=== PATIENT | female | born 1980 | race Caucasian/White ===

== ENCOUNTER → 2017-10-18 | Outpatient (CLI) | payer OTHER ==
--- NOTE | 2017-10-18 17:05 | MR ---
EXAMINATION TYPE: MR brain wo/w con DATE OF EXAM: 10/18/2017 COMPARISON: NONE HISTORY: 37-year-old female migraine, unspecified, not intractable. Headaches, Dizzy. TECHNIQUE: Multiplanar, multisequence images of the brain and brainstem were acquired before and aft er administration of 10 mL IV Gadavist. Diffusion weighted imaging is performed. FINDINGS: No evidence for acute infarction, hemorrhage, mass, mass effect, midline shift, herniation, effacemen t of basal cisterns, or extra-axial fluid collection. The ventricles and sulci are age-appropriate. Major intracranial flow voids are intact. T2/FLAIR weighted sequences show no white matter signal abnormality. Midline structures demonstrate normal morphology. The craniocervical junction is normal. Post contrast images demonstrate no evidence of pathologic enhancement. Dural venous sinuses are pat ent. The visualized sinuses are clear and the globes are intact. Small amount of fluid in the inferior rig ht mastoid air cells. IMPRESSION: 1. No intracranial abnormality seen. 2. Small amount of trapped fluid in the inferior right mastoid air cells. Correlate for any mastoid p ain to exclude mastoiditis.
== END | disposition home or self-care (01) ==
LOC: RADMRIMAIN 14:51
PROVIDERS: ATTEND Family Medicine
DX: H74.8X9 Other specified disorders of middle ear and mastoid, unspecified ear (principal); G43.909 Migraine, unspecified, not intractable, without status migrainosus
CPT/HCPCS: 70553; A9581

== ENCOUNTER → 2019-11-24 | Outpatient (CLI) | payer OTHER ==
[2019-11-24 14:42] VITALS: BP 131/85; PULSE 118; RESP 16; TEMP 98.5
--- NOTE | 2019-11-24 16:02 | P.HPBAR ---
Bariatric H&P - History & Physicial H&P Date: 11/24/19 History & Physicial: Visit/CC: Initial Visit Patient initial contact: Initial weight: Initial weight in pounds: Height: Initial BMI: Last weight: Current weight: Current weight in pounds: Current BMI: [place] body weight (based on NIH guidelines): Excess body weight loss: The patient is a 39 year-old F who presents for Bariatric Assessment. Patient presents today for presurgical consultation. She is being scheduled for then a month for sleeve gastrectomy. Past Medical History Smoking Status: Unknown if ever smoked Surgical - Exam Vital Signs Temp Pulse Resp BP 98.5 F 118 H 16 131/85 11/24/19 14:14 11/24/19 14:14 11/24/19 14:14 11/24/19 14:14 - General well developed, well nourished, no distress - Eyes PERRL - ENT normal pinna - Neck no masses - Respiratory normal expansion - Cardiovascular Rhythm: regular - Abdomen Abdomen: soft, non tender Bariatric Assessment & Plan Plan: RBC. Patient has an excellent understanding sleeve gastrectomy. We will the risks and benefits of procedure. She is aware the risk of gastric staple line bleeding, scarring or obstruction. And perforation. Bariatric Checklist Checklist: Plan: Checklist: EGD: 1. Hiatal hernia: 2. H. Pylori: HgbA1c: Vitamin D: Smoking: Unknown if ever smoked Primary care physician referral: Dr. Beltrán Psychiatry clearance: Cardiology clearance: Sleep study: Diet journal: VTE risk score: VTE risk level: Rehab needs at discharge:
== END | disposition home or self-care (01) ==
LOC: BARWHC3 13:47
PROVIDERS: ATTEND Surgery
DX: Z48.815 Encounter for surgical aftercare following surgery on the digestive system (principal)
CPT/HCPCS: 99201

== ENCOUNTER 2019-12-11 09:56 | Day surgery (SDC) | payer OTHER ==
[2019-12-10 08:51] VITALS: BMI 43.2
[~2019-12-11 09:56] MED LIST: LACTATED RINGERS 1,000 ML IV SCH
[2019-12-11 10:22] VITALS: TEMP 98.5
[2019-12-11] MEDS ORDERED: PROPOFOL 10 MG/ML 20 ML VIAL IV ONE (11:19)
--- NOTE | 2019-12-11 11:19 | P.GSHP ---
History of Present Illness H&P Date: 12/11/19 Chief Complaint: GERD This a 39-year-old female with history of GERD. Patient presents today for EGD. Past Medical History Past Medical History: Hypertension, Osteoarthritis (OA) History of Any Multi-Drug Resistant Organisms: None Reported Past Surgical History: Appendectomy, Section Additional Past Surgical History / Comment(s): CONE BIOPSY Past Anesthesia/Blood Transfusion Reactions: No Reported Reaction Smoking Status: Never smoker - Past Family History Mother Family Medical History: No Reported History Medications and Allergies Home Medications Medication Instructions Recorded Confirmed Type Ergocalciferol [Vitamin D2] 50,000 unit PO TU 12/10/19 12/10/19 History Hydrochlorothiazide [Hydrodiuril] 12.5 mg PO DAILY 12/10/19 12/10/19 History Multivitamin [Multivitamins Adult 1 each PO DAILY 12/10/19 12/10/19 History Gummies] busPIRone HCL [Buspar] 7.5 mg PO TID 12/10/19 12/10/19 History Allergies Allergy/AdvReac Type Severity Reaction Status Date / Time No Known Allergies Allergy Verified 12/11/19 10:12 Surgical - Exam Vital Signs Temp Pulse Resp BP Pulse Ox 98.5 F 98 16 152/79 97 12/11/19 10:21 12/11/19 10:21 12/11/19 10:21 12/11/19 10:21 12/11/19 10:21 - General well developed, well nourished, no distress - Eyes PERRL - ENT normal pinna - Neck no masses - Respiratory normal expansion - Cardiovascular Rhythm: regular - Abdomen Abdomen: soft, non tender Assessment and Plan Assessment: GERD. We'll perform EGD.
--- NOTE | 2019-12-11 11:30 | P.OP ---
Date of Procedure: 12/11/19 Preoperative Diagnosis: Morbid obesity GERD Postoperative Diagnosis: Morbid obesity Antral gastritis Procedure(s) Performed: EGD Anesthesia: MAC Surgeon: Angel Trivedi Pathology: other (Antrum) Condition: stable Disposition: PACU Description of Procedure: There is no significant hiatal hernia. The GE junction was at 40 cm the distal esophagus appeared normal. The proximal esophagus appeared normal. Scope was withdrawn for patient.
[2019-12-11 12:17] VITALS: RESP 18
[2019-12-11 12:18] VITALS: BP 137/76; PULSE 78
== END 2019-12-11 12:14 | disposition home or self-care (01) ==
LOC: ORWHC2ENDO 09:56
PROVIDERS: ATTEND Surgery
DX: K29.50 Unspecified chronic gastritis without bleeding (principal); K21.9 Gastro-esophageal reflux disease without esophagitis; E66.01 Morbid (severe) obesity due to excess calories; Z68.41 Body mass index [BMI] 40.0-44.9, adult; I10 Essential (primary) hypertension; M19.90 Unspecified osteoarthritis, unspecified site; Z98.890 Other specified postprocedural states; Z79.899 Other long term (current) drug therapy
CPT/HCPCS: 81025; 88305; 43239; J2704

== ENCOUNTER → 2019-12-15 | Outpatient (CLI) | payer OTHER ==
[2019-12-15 13:54] VITALS: BP 124/80; PULSE 78; RESP 16; TEMP 97.9; BMI 43.7
--- NOTE | 2019-12-22 13:35 | P.HPBAR ---
Bariatric H&P - History & Physicial H&P Date: 12/15/19 History & Physicial: Visit/CC: EGD F/U Patient initial contact: Initial weight: 119.833 kg Initial weight in pounds: 264.19 Height: 5 ft 5.25 in Initial BMI: 43.6 Last weight: Current weight: 119.975 kg Current weight in pounds: 264.50 Current BMI: 43.7 [place] body weight (based on NIH guidelines): 57.266 kg Excess body weight loss: The patient is a 39 year-old F who presents for Bariatric Assessment. Patient presents today for bariatric follow-up. She is on her third month of her supervises. Patient is morbidly obese with BMI 43. Past Medical History Past Medical History: Hypertension, Osteoarthritis (OA) History of Any Multi-Drug Resistant Organisms: None Reported Past Surgical History: Appendectomy, Section Additional Past Surgical History / Comment(s): CONE BIOPSY Past Anesthesia/Blood Transfusion Reactions: No Reported Reaction Past Psychological History: Anxiety Smoking Status: Never smoker Past Alcohol Use History: Occasional Past Drug Use History: None Reported - Past Family History Mother Family Medical History: No Reported History Surgical - Exam Vital Signs Temp Pulse Resp BP 97.9 F 78 16 124/80 12/15/19 13:51 12/15/19 13:51 12/15/19 13:51 12/15/19 13:51 - General well developed, well nourished, no distress - Eyes PERRL - ENT normal pinna - Neck no masses - Respiratory normal expansion - Cardiovascular Rhythm: regular - Abdomen Abdomen: soft, non tender Bariatric Assessment & Plan Plan: RBC is BMI 43. Patient will follow-up in 1 month. We anticipate sending her for authorization for sleeve gastrectomy 3-4 months. Bariatric Checklist Checklist: Plan: Checklist: EGD: 1. Hiatal hernia: 2. H. Pylori: HgbA1c: Vitamin D: Smoking: Unknown if ever smoked Primary care physician referral: Dr. Beltrán Psychiatry clearance: Cardiology clearance: Sleep study: Diet journal: VTE risk score: VTE risk level: Rehab needs at discharge:
== END | disposition home or self-care (01) ==
LOC: BARWHC3 13:31
PROVIDERS: ATTEND Surgery
DX: E66.01 Morbid (severe) obesity due to excess calories (principal); Z68.41 Body mass index [BMI] 40.0-44.9, adult
CPT/HCPCS: 99211

== ENCOUNTER → 2020-01-19 | Outpatient (CLI) | payer OTHER ==
[2020-01-19 14:04] VITALS: BP 116/79; PULSE 97; RESP 18; TEMP 98.2; BMI 44.4
--- NOTE | 2020-01-19 14:39 | P.HPBAR ---
Bariatric H&P - History & Physicial H&P Date: 01/19/20 History & Physicial: Visit/CC: new patient Patient initial contact: Initial weight: 119.833 kg Initial weight in pounds: 264.19 Height: 5 ft 5.25 in Initial BMI: 43.6 Last weight: Current weight: 122.016 kg Current weight in pounds: 269.00 Current BMI: 44.4 [place] body weight (based on NIH guidelines): 57.266 kg Excess body weight loss: The patient is a 39 year-old F who presents for Bariatric Assessment. Patient presents today for presurgical consultation. Her weight has been stable. She has 4 months of position directed weight loss covered so far. Her weight has been stable. His had mild GERD. Her BMI is 44. Past Medical History Past Medical History: Hypertension, Osteoarthritis (OA) History of Any Multi-Drug Resistant Organisms: None Reported Past Surgical History: Appendectomy, Section Additional Past Surgical History / Comment(s): CONE BIOPSY Past Anesthesia/Blood Transfusion Reactions: No Reported Reaction Past Psychological History: Anxiety Smoking Status: Never smoker Past Alcohol Use History: Occasional Past Drug Use History: None Reported - Past Family History Mother Family Medical History: No Reported History Surgical - Exam Vital Signs Temp Pulse Resp BP 98.2 F 97 18 116/79 01/19/20 13:58 01/19/20 13:58 01/19/20 13:58 01/19/20 13:58 BMI 44 - General well developed, well nourished, no distress - Eyes PERRL - ENT normal pinna - Neck no masses - Respiratory normal expansion - Cardiovascular Rhythm: regular - Abdomen Abdomen: soft, non tender Bariatric Assessment & Plan Plan: Morbid obesity, BMI 44. Patient follow-up in one month for recheck. She is an excellent understanding sleeve gastrectomy. 1 over the risks and benefits of the procedure. Bariatric Checklist Checklist: Plan: Checklist: EGD: 1. Hiatal hernia: 2. H. Pylori: HgbA1c: Vitamin D: Smoking: Unknown if ever smoked Primary care physician referral: Dr. Beltrán Psychiatry clearance: Cardiology clearance: Sleep study: Diet journal: VTE risk score: VTE risk level: Rehab needs at discharge:
== END | disposition home or self-care (01) ==
LOC: BARWHC3 13:33
PROVIDERS: ATTEND Surgery
DX: E66.01 Morbid (severe) obesity due to excess calories (principal); Z68.41 Body mass index [BMI] 40.0-44.9, adult; K21.9 Gastro-esophageal reflux disease without esophagitis; Z90.49 Acquired absence of other specified parts of digestive tract
CPT/HCPCS: 99211

== ENCOUNTER → 2020-02-23 | Outpatient (CLI) | payer OTHER ==
[2020-02-23 13:46] VITALS: BP 139/77; PULSE 88; RESP 18; TEMP 98.7; BMI 44.7
--- NOTE | 2020-02-23 14:33 | P.HPBAR ---
Bariatric H&P - History & Physicial H&P Date: 02/23/20 History & Physicial: Visit/CC: ALON #4 Patient initial contact: Initial weight: 119.833 kg Initial weight in pounds: 264.19 Height: 5 ft 5.25 in Initial BMI: 43.6 Last weight: Current weight: 122.924 kg Current weight in pounds: 271.00 Current BMI: 44.7 [place] body weight (based on NIH guidelines): 57.266 kg Excess body weight loss: The patient is a 39 year-old F who presents for Bariatric Assessment. Patient is presurgical. She presents for supervised weight loss visit. She is morbidly obese. Her BMI is 44. Her current weight is 271 pounds. Past Medical History Past Medical History: Hypertension, Osteoarthritis (OA) History of Any Multi-Drug Resistant Organisms: None Reported Past Surgical History: Appendectomy, Section Additional Past Surgical History / Comment(s): CONE BIOPSY Past Anesthesia/Blood Transfusion Reactions: No Reported Reaction Past Psychological History: Anxiety Smoking Status: Never smoker Past Alcohol Use History: Occasional Past Drug Use History: None Reported - Past Family History Mother Family Medical History: No Reported History Surgical - Exam Vital Signs Temp Pulse Resp BP 98.7 F 88 18 139/77 02/23/20 13:38 02/23/20 13:38 02/23/20 13:38 02/23/20 13:38 - General well developed, well nourished, no distress - Eyes PERRL - ENT normal pinna - Neck no masses - Respiratory normal expansion - Cardiovascular Rhythm: regular - Abdomen Abdomen: soft, non tender Bariatric Assessment & Plan Plan: Morbid obesity. BMI is 44. Patient will follow-up in 4 weeks. He had a lengthy discussion regarding sleeve gastrectomy. Patient is an excellent understanding of the sleeve. Bariatric Checklist Checklist: Plan: Checklist: EGD: 1. Hiatal hernia: 2. H. Pylori: HgbA1c: Vitamin D: Smoking: Unknown if ever smoked Primary care physician referral: Dr. Beltrán Psychiatry clearance: Cardiology clearance: Sleep study: Diet journal: VTE risk score: VTE risk level: Rehab needs at discharge:
== END | disposition home or self-care (01) ==
LOC: BARWHC3 13:32
PROVIDERS: ATTEND Surgery
DX: E66.01 Morbid (severe) obesity due to excess calories (principal); Z68.41 Body mass index [BMI] 40.0-44.9, adult; Z90.49 Acquired absence of other specified parts of digestive tract
CPT/HCPCS: 99211

== ENCOUNTER → 2020-03-08 | Outpatient (CLI) | payer OTHER ==
[2020-03-08 13:50] VITALS: BP 168/71; PULSE 98; TEMP 98.2; BMI 44.7
--- NOTE | 2020-03-08 14:43 | P.HPBAR ---
Bariatric H&P - History & Physicial H&P Date: 03/08/20 History & Physicial: Visit/CC: swl visit Patient initial contact: Initial weight: 119.833 kg Initial weight in pounds: 264.19 Height: 5 ft 5.25 in Initial BMI: 43.6 Last weight: Current weight: 122.924 kg Current weight in pounds: 271.00 Current BMI: 44.7 [place] body weight (based on NIH guidelines): 57.266 kg Excess body weight loss: The patient is a 39 year-old F who presents for Bariatric Assessment. Patient presents today for presurgical consultation. This is her fifth visit. Her weight is remain stable 271 pounds. Her BMI is 44 Past Medical History Past Medical History: Hypertension, Osteoarthritis (OA) History of Any Multi-Drug Resistant Organisms: None Reported Past Surgical History: Appendectomy, Section Additional Past Surgical History / Comment(s): CONE BIOPSY Past Anesthesia/Blood Transfusion Reactions: No Reported Reaction Smoking Status: Never smoker - Past Family History Mother Family Medical History: No Reported History Surgical - Exam Vital Signs Temp Pulse BP 98.2 F 98 168/71 03/08/20 13:46 03/08/20 13:46 03/08/20 13:46 - General well developed, well nourished, no distress - Eyes PERRL - ENT normal pinna - Neck no masses - Respiratory normal expansion - Cardiovascular Rhythm: regular - Abdomen Abdomen: soft, non tender Bariatric Assessment & Plan Plan: Morbid obesity Patient will follow-up in one month. Bariatric Checklist Checklist: Plan: Checklist: EGD: 1. Hiatal hernia: 2. H. Pylori: HgbA1c: Vitamin D: Smoking: Unknown if ever smoked Primary care physician referral: Dr. Beltrán Psychiatry clearance: Cardiology clearance: Sleep study: Diet journal: VTE risk score: VTE risk level: Rehab needs at discharge:
== END | disposition home or self-care (01) ==
LOC: BARWHC3 13:01
PROVIDERS: ATTEND Surgery
DX: E66.01 Morbid (severe) obesity due to excess calories (principal); Z68.41 Body mass index [BMI] 40.0-44.9, adult; Z98.890 Other specified postprocedural states
CPT/HCPCS: 99211

== ENCOUNTER → 2020-03-29 | Outpatient (CLI) | payer OTHER ==
[2020-03-29 13:02] VITALS: BMI 44.9
[2020-03-29 13:09] VITALS: BP 138/85; PULSE 105; TEMP 98.5
--- NOTE | 2020-03-29 14:39 | P.HPBAR ---
Bariatric H&P - History & Physicial H&P Date: 03/29/20 History & Physicial: Visit/CC: pre-surgical Patient initial contact: Initial weight: 119.833 kg Initial weight in pounds: 264.19 Height: 5 ft 5.25 in Initial BMI: 43.6 Last weight: Current weight: 124.284 kg Current weight in pounds: 272.30 Current BMI: 44.9 [place] body weight (based on NIH guidelines): 57.266 kg Excess body weight loss: The patient is a 39 year-old F who presents for Bariatric Assessment. Patient resents today for presurgical consultation. She is obtaining her presurgical weights here at the clinic. Patient is morbidly obese with BMI of 45. She has an excellent understanding of sleeve gastrectomy. We went over the risks and benefits of the procedure. Past Medical History Past Medical History: Hypertension, Osteoarthritis (OA) History of Any Multi-Drug Resistant Organisms: None Reported Past Surgical History: Appendectomy, Section Additional Past Surgical History / Comment(s): CONE BIOPSY Past Anesthesia/Blood Transfusion Reactions: No Reported Reaction Past Psychological History: Anxiety Smoking Status: Never smoker Past Alcohol Use History: Occasional Past Drug Use History: None Reported - Past Family History Mother Family Medical History: No Reported History Surgical - Exam Vital Signs Temp Pulse BP 98.5 F 105 H 138/85 03/29/20 13:06 03/29/20 13:06 03/29/20 13:06 - General well developed, well nourished, no distress - Eyes PERRL - ENT normal pinna - Neck no masses - Respiratory normal expansion - Cardiovascular Rhythm: regular - Abdomen Abdomen: soft, non tender Bariatric Assessment & Plan Plan: Morbid obesity, BMI 45. Patient will be scheduled for sleeve gastrectomy once her insurance authorization requirements have been met. Bariatric Checklist Checklist: Plan: Checklist: EGD: 1. Hiatal hernia: 2. H. Pylori: HgbA1c: Vitamin D: Smoking: Unknown if ever smoked Primary care physician referral: Dr. Beltrán Psychiatry clearance: Cardiology clearance: Sleep study: Diet journal: VTE risk score: VTE risk level: Rehab needs at discharge:
== END | disposition home or self-care (01) ==
LOC: BARWHC3 08:30
PROVIDERS: ATTEND Surgery
DX: E66.01 Morbid (severe) obesity due to excess calories (principal); Z68.42 Body mass index [BMI] 45.0-49.9, adult; Z71.3 Dietary counseling and surveillance
CPT/HCPCS: 97804; 99211

== ENCOUNTER → 2020-05-03 | Outpatient (CLI) | payer OTHER ==
[2020-05-03 14:35] VITALS: BP 156/81; PULSE 82; RESP 18; TEMP 98.1
--- NOTE | 2020-06-07 15:19 | P.HPBAR ---
Bariatric H&P - History & Physicial H&P Date: 05/03/20 History & Physicial: Visit/CC: follow up / SWL Patient initial contact: Initial weight: 119.833 kg Initial weight in pounds: 264.19 Height: 5 ft 5.25 in Initial BMI: Last weight: Current weight: 121.563 kg Current weight in pounds: Current BMI: [place] body weight (based on NIH guidelines): Excess body weight loss: The patient is a 39 year-old F who presents for Bariatric Assessment. She presents today for presurgical consultation. Patient is an excellent understanding of the gastric sleeve procedure. We went over the risks and benefits of procedure again. BMI today is 44 Past Medical History Past Medical History: Hypertension, Osteoarthritis (OA) History of Any Multi-Drug Resistant Organisms: None Reported Past Surgical History: Appendectomy, Section Additional Past Surgical History / Comment(s): CONE BIOPSY Past Anesthesia/Blood Transfusion Reactions: No Reported Reaction Past Psychological History: Anxiety Smoking Status: Never smoker Past Alcohol Use History: Occasional Past Drug Use History: None Reported - Past Family History Mother Family Medical History: No Reported History Surgical - Exam Vital Signs Temp Pulse Resp BP 98.1 F 82 18 156/81 05/03/20 14:32 05/03/20 14:32 05/03/20 14:32 05/03/20 14:32 - General well developed, well nourished, no distress - Eyes PERRL - ENT normal pinna - Neck no masses - Respiratory normal expansion - Cardiovascular Rhythm: regular - Abdomen Abdomen: soft, non tender Hernia: none Bariatric Assessment & Plan Plan: Morbid obesity, BMI 44. Patient will be scheduled for sleeve gastrectomy 1 insurance authorization requirements have been met. Bariatric Checklist Checklist: Plan: Checklist: EGD: 1. Hiatal hernia: 2. H. Pylori: HgbA1c: Vitamin D: Smoking: Unknown if ever smoked Primary care physician referral: Dr. Beltrán Psychiatry clearance: Cardiology clearance: Sleep study: Diet journal: VTE risk score: VTE risk level: Rehab needs at discharge:
== END | disposition home or self-care (01) ==
LOC: BARWHC3 13:26
PROVIDERS: ATTEND Surgery
DX: E66.01 Morbid (severe) obesity due to excess calories (principal); Z68.41 Body mass index [BMI] 40.0-44.9, adult; Z98.890 Other specified postprocedural states
CPT/HCPCS: 99211

== ENCOUNTER → 2020-05-31 | Outpatient (CLI) | payer OTHER ==
[2020-05-31 13:20] VITALS: BP 125/86; PULSE 82; TEMP 98.2; BMI 42.4
--- NOTE | 2020-05-31 14:24 | P.HPBAR ---
Bariatric H&P - History & Physicial H&P Date: 05/31/20 History & Physicial: Visit/CC: presurgical visit Patient initial contact: Initial weight: 119.833 kg Initial weight in pounds: 264.19 Height: 5 ft 5.25 in Initial BMI: 43.6 Last weight: Current weight: 116.573 kg Current weight in pounds: 257.00 Current BMI: 42.4 [place] body weight (based on NIH guidelines): 57.266 kg Excess body weight loss: 5.2% The patient is a 39 year-old F who presents for Bariatric Assessment. Patient presents today for presurgical consultation. She's lost approximately 18 pounds recently. She has an excellent understanding sleeve gastrectomy. Past Medical History Past Medical History: Hypertension, Osteoarthritis (OA) History of Any Multi-Drug Resistant Organisms: None Reported Past Surgical History: Appendectomy, Section Additional Past Surgical History / Comment(s): CONE BIOPSY Past Anesthesia/Blood Transfusion Reactions: No Reported Reaction Past Psychological History: Anxiety Smoking Status: Never smoker Past Alcohol Use History: Occasional Past Drug Use History: None Reported - Past Family History Mother Family Medical History: No Reported History Surgical - Exam Vital Signs Temp Pulse BP 98.2 F 82 125/86 05/31/20 13:18 05/31/20 13:18 05/31/20 13:18 - General well developed, well nourished, no distress - Eyes PERRL - ENT normal pinna - Neck no masses, no bruits - Respiratory normal expansion - Cardiovascular Rhythm: regular - Abdomen Abdomen: soft, non tender Bariatric Assessment & Plan Plan: Morbid obesity. Patient will be scheduled for sleeve gastrectomy once her insurance authorization requirements of the neck. She will follow-up in one month. Bariatric Checklist Checklist: Plan: Checklist: EGD: 1. Hiatal hernia: 2. H. Pylori: HgbA1c: Vitamin D: Smoking: Unknown if ever smoked Primary care physician referral: Dr. Beltrán Psychiatry clearance: Cardiology clearance: Sleep study: Diet journal: VTE risk score: VTE risk level: Rehab needs at discharge:
== END | disposition home or self-care (01) ==
LOC: BARWHC3 12:57
PROVIDERS: ATTEND Surgery
DX: E66.01 Morbid (severe) obesity due to excess calories (principal); Z68.41 Body mass index [BMI] 40.0-44.9, adult
CPT/HCPCS: 99211

== ENCOUNTER → 2020-06-23 | Outpatient (CLI) | payer OTHER ==
[2020-06-23 10:15] LABS: HCT 40.4 % (34.0-46.0); HGB 13.8 gm/dL (11.4-16.0); MCH 28.2 pg (25.0-35.0); MCHC 34.2 g/dL (31.0-37.0); MCV 82.3 fL (80.0-100.0); Mean Platelet Volume 6.8; Platelet Count 250 k/uL (150-450); RDW 13.7 % (11.5-15.5); WBC 8.1 k/uL (3.8-10.6)
[2020-06-23 17:08] LABS: Hemoglobin A1C 5.2 % (4.0-6.0)
[2020-06-23 17:43] LABS: ALT 33 U/L (8-44); AST 27 U/L (13-35); African American GFR (CKD) 106.1 (60.0-200.0); Albumin/Globulin Ratio 2.35 (1.60-3.17); Alkaline Phosphatase 65 U/L (41-126); BUN/Creat Ratio 11.25 Ratio (12.00-20.00); Calcium 10.2 mg/dL (8.7-10.3); Carbon Dioxide 27.8 mmol/L (21.6-31.8); Chloride 104 mmol/L (96-109); Chol/HDL Ratio 5.55; Cholesterol 233 mg/dL (0-200); Glucose 103 mg/dL (70-110); LDL Cholesterol,Calculated 145.4 mg/dL (0.0-131.0); Non-African American GFR(CKD) 91.6 (60.0-200.0); Potassium 3.8 mmol/L (3.5-5.5); Sodium 142 mmol/L (135-145); Total Bilirubin 0.4 mg/dL (0.2-1.2); Total Protein 6.7 g/dL (6.2-8.2)
[2020-06-23 17:58] LABS: Folate, Serum >24.0 ng/mL
== END | disposition home or self-care (01) ==
LOC: LABWHC1 09:31
PROVIDERS: ATTEND Surgery
DX: E55.9 Vitamin D deficiency, unspecified (principal); E88.81 Metabolic syndrome and other insulin resistance; E66.01 Morbid (severe) obesity due to excess calories
CPT/HCPCS: 36415; 80053; 80061; 82306; 82607; 82746; 83036; 84425; 85027

== ENCOUNTER → 2020-07-05 | Outpatient (CLI) | payer OTHER ==
[2020-07-05 13:34] VITALS: BP 147/90; PULSE 101; RESP 18; TEMP 98.8; BMI 41.1
--- NOTE | 2020-07-05 14:28 | P.HPBAR ---
Bariatric H&P - History & Physicial H&P Date: 07/05/20 History & Physicial: Visit/CC: follow up Patient initial contact: Initial weight: 119.833 kg Initial weight in pounds: 264.19 Height: 5 ft 5.25 in Initial BMI: 43.6 Last weight: Current weight: 112.945 kg Current weight in pounds: 249.00 Current BMI: 41.1 [place] body weight (based on NIH guidelines): 57.266 kg Excess body weight loss: 11.0% The patient is a 39 year-old F who presents for Bariatric Assessment. Patient presents today for presurgical consultation. She is performing her medical doctor weight loss. She is approximately 8 months into this. Patient's GERD is minimal. Morbid obesity is stable her BMI is 41. Past Medical History Past Medical History: Hypertension, Osteoarthritis (OA) History of Any Multi-Drug Resistant Organisms: None Reported Past Surgical History: Appendectomy, Section Additional Past Surgical History / Comment(s): CONE BIOPSY Past Anesthesia/Blood Transfusion Reactions: No Reported Reaction Past Psychological History: Anxiety Smoking Status: Never smoker Past Alcohol Use History: Occasional Past Drug Use History: None Reported - Past Family History Mother Family Medical History: No Reported History Surgical - Exam Vital Signs Temp Pulse Resp BP 98.8 F 101 H 18 147/90 07/05/20 13:30 07/05/20 13:30 07/05/20 13:30 07/05/20 13:30 - General well developed, well nourished, no distress - Eyes PERRL - ENT normal pinna - Neck no masses - Respiratory normal expansion - Cardiovascular Rhythm: regular - Abdomen Abdomen: soft, non tender Bariatric Assessment & Plan Plan: Morbid obesity, BMI 41. Patient will follow-up in 4 weeks. Hopefully she'll be scheduled once her insurance authorization is completed. Bariatric Checklist Checklist: Plan: Checklist: EGD: 1. Hiatal hernia: 2. H. Pylori: HgbA1c: Vitamin D: Smoking: Unknown if ever smoked Primary care physician referral: Dr. Beltrán Psychiatry clearance: Cardiology clearance: Sleep study: Diet journal: VTE risk score: VTE risk level: Rehab needs at discharge:
== END | disposition home or self-care (01) ==
LOC: BARWHC3 12:58
PROVIDERS: ATTEND Surgery
DX: E66.01 Morbid (severe) obesity due to excess calories (principal); Z68.41 Body mass index [BMI] 40.0-44.9, adult
CPT/HCPCS: 99211

== ENCOUNTER → 2020-08-03 | Outpatient (CLI) | payer OTHER ==
[2020-08-03 10:16] LABS: Basophils % (A) 0 %; Eosinophils # (A) 0.3 k/uL (0-0.7); Eosinophils % (A) 3 %; HCT 41.3 % (34.0-46.0); HGB 13.6 gm/dL (11.4-16.0); Lymphocytes # (A) 1.8 k/uL (1.0-4.8); Lymphocytes % (A) 20 %; MCH 27.8 pg (25.0-35.0); MCV 84.2 fL (80.0-100.0); Monocytes # (A) 0.4 k/uL (0-1.0); Monocytes % (A) 5 %; Neutrophils # (A) 6.3 k/uL (1.3-7.7); Neutrophils % (A) 71 %; Platelet Count 188 k/uL (150-450); RDW 14.1 % (11.5-15.5); WBC 8.9 k/uL (3.8-10.6)
[2020-08-03 10:37] LABS: ALT 49 U/L (4-34); AST 37 U/L (14-36); African American GFR (CKD) >90 (>60 ml/min/1.73 sqM); Albumin 4.3 g/dL (3.5-5.0); Alkaline Phosphatase 73 U/L (38-126); Anion Gap 9 mmol/L; Blood Urea Nitrogen 17 mg/dL (7-17); Calcium 9.7 mg/dL (8.4-10.2); Carbon Dioxide 26 mmol/L (22-30); Chloride 102 mmol/L (98-107); Glucose 114 mg/dL (74-99); Non-African American GFR(CKD) >90 (>60 ml/min/1.73 sqM); Potassium 4.1 mmol/L (3.5-5.1); Sodium 137 mmol/L (137-145); Total Bilirubin 0.7 mg/dL (0.2-1.3); Total Protein 7.2 g/dL (6.3-8.2)
== END | disposition home or self-care (01) ==
LOC: LABPAT 09:27
PROVIDERS: ATTEND Surgery
DX: Z01.812 Encounter for preprocedural laboratory examination (principal)
CPT/HCPCS: 80053; 85025

== ENCOUNTER 2020-08-16 07:40 | Inpatient (IN) | payer OTHER ==
[~2020-08-16 07:40] MED LIST changes: +DEXAMETHASONE SOD PHOSPHATE 4 MG/ML 1 ML VIAL IV ONE; +ENOXAPARIN 40 MG/0.4 ML SYRINGE SQ PRN; -LACTATED RINGERS 1,000 ML IV SCH; +ONDANSETRON 4 MG/2 ML VIAL IVP ONE
[2020-08-16] MEDS ORDERED: LIDOCAINE 1% INJ 10MG/ML (20 ML MDV) ONE ×2 (09:01→09:58)
[2020-08-16] MEDS: LACTATED RINGERS 1,000 ML IV SCH (09:05)
[2020-08-16] MEDS ORDERED: MIDAZOLAM 2 MG/2 ML VIAL IV ONE (09:12)
--- NOTE | 2020-08-16 09:38 | P.GSHP ---
History of Present Illness H&P Date: 08/16/20 Chief Complaint: Morbid obesity This a 40-year-old female who presents today for laparoscopic sleeve gastrectomy. Patient's is morbidly obese. Her BMI is 39. She presents risks of surgery including injury to the stomach liver spleen as well as his issues with gastric staple line such as bleeding scarring perforation. Past Medical History Past Medical History: Hypertension, Osteoarthritis (OA) History of Any Multi-Drug Resistant Organisms: None Reported Past Surgical History: Appendectomy, Section Additional Past Surgical History / Comment(s): CONE BIOPSY, EGD Past Anesthesia/Blood Transfusion Reactions: No Reported Reaction Smoking Status: Never smoker - Past Family History Mother Family Medical History: No Reported History Medications and Allergies Home Medications Medication Instructions Recorded Confirmed Type busPIRone HCL [Buspar] 7.5 mg PO TID 12/10/19 08/16/20 History hydroCHLOROthiazide [Hydrodiuril] 12.5 mg PO DAILY 12/10/19 08/16/20 History Fluticasone Nasal [place] [Flonase 2 spr EA NOSTRIL DAILY 02/23/20 08/16/20 History Nasal [place]] bisacodyL [Dulcolax] 5 mg PO DAILY 08/16/20 08/16/20 History Allergies Allergy/AdvReac Type Severity Reaction Status Date / Time No Known Allergies Allergy Verified 08/16/20 09:35 Surgical - Exam Vital Signs Temp Pulse Resp BP Pulse Ox 98.9 F 100 16 137/70 98 08/16/20 08:39 08/16/20 08:39 08/16/20 08:39 08/16/20 08:39 08/16/20 08:39 - General well developed, well nourished, no distress - Eyes PERRL - ENT normal pinna - Neck no masses - Respiratory normal expansion - Cardiovascular Rhythm: regular - Abdomen Abdomen: soft, non tender Assessment and Plan Assessment: Morbid obesity. We'll perform laparoscopic sleeve gastrectomy.
[2020-08-16] MEDS ORDERED: GLYCOPYRROLATE 0.2 MG/ML 2 ML VIAL ONE (09:58)
[2020-08-16] MEDS ORDERED: PROPOFOL 10 MG/ML 20 ML VIAL IV ONE (09:58)
[2020-08-16] MEDS ORDERED: ROCURONIUM 10 MG/ML (5 ML VIAL) IV ONE (09:58)
[2020-08-16] MEDS ORDERED: SUCCINYLCHOLINE CHLORIDE VIAL 200 MG/10 ML VIAL IV ONE (09:58)
[2020-08-16] MEDS ORDERED: fentaNYL (PF) 50 MCG/ML 2 ML AMP ONE (09:58)
[2020-08-16] MEDS ORDERED: SODIUM CHLORIDE 0.9% 100 ML BAG ONE (09:58)
[2020-08-16] MEDS ORDERED: ceFAZolin 1,000 MG VIAL ONE (09:58)
[2020-08-16] MEDS ORDERED: MIDAZOLAM 2 MG/2 ML VIAL ONE (09:58)
[2020-08-16] MEDS ORDERED: HYDROmorphone (PF) 1 MG/ML ONE (09:58)
[2020-08-16] MEDS ORDERED: ROPIVACAINE 5 MG/ML 30 ML VIAL ONE (09:58)
[2020-08-16] MEDS ORDERED: KETOROLAC 15 MG/ML 1 ML VIAL ONE (09:58)
[2020-08-16] MEDS ORDERED: NEOSTIGMINE 1 MG/ML 10 ML VIAL ONE (09:58)
[2020-08-16] MEDS ORDERED: BUPIVACAIN-EPI 0.5%-1:200,000 30 ML VIAL SQ ONE ×2 (09:59→10:24)
[2020-08-16] MEDS ORDERED: HYOSCYAMINE ORAL DROPS 1.875 MG/15 ML BOTTLE PO PRN (11:09)
[2020-08-16] MEDS ORDERED: NALOXONE 0.4 MG/ML 1 ML VIAL IV PRN (11:09)
[2020-08-16] MEDS ORDERED: diphenhydrAMINE 50 MG/ML 1 ML VIAL IVP PRN (11:09)
[2020-08-16] MEDS ORDERED: SIMETHICONE 40 MG/0.6 ML DROPS 2,000 MG/30 ML BOTTLE PO PRN (11:09)
--- NOTE | 2020-08-16 11:09 | P.OP ---
Date of Procedure: 08/16/20 Preoperative Diagnosis: Morbid obesity, BMI 39 Postoperative Diagnosis: Morbid obesity, BMI 39 Procedure(s) Performed: Gastric sleeve Anesthesia: HECTOR Surgeon: Angel Trivedi Estimated Blood Loss (ml): 5 Pathology: other (Stomach) Condition: stable Disposition: PACU Description of Procedure: The patient was placed on the operating room table in the supine position. She received general anesthesia and then was placed in dorsal lithotomy position. Her abdomen was prepped and draped in sterile fashion. The skin incision sites were anesthetized 1% local Xylocaine. And then the skin was incised with an 11 blade in the left lateral position. Using a blade less trocar under direct visualization the peritoneal cavity was entered. The abdomen was insufflated and then a 5 mm laparoscope was placed into the peritoneal cavity. A 5 mm trocar was placed in the right epigastric, and right lateral position. A 15 mm trocar was placed in the supra-umbilical position and another 5 mm trocar was placed in the left lateral position. The left lateral lobe of the liver was retracted. The stomach was visualized. The greater curvature of the stomach was then dissected using the Harmonic scissors. The dissection occurred approximately 5 cm from the pylorus to the level of the left nomi. There was no hiatal hernia seen. At this point a 40-Kenyan bougie dilator was placed the oropharynx and passed into the esophagus and into the stomach by the FOUNTAIN HELPER. The sleeve gastrectomy was performed by using the powered echelon stapler with a seam guard buttress material. Sequential firings of the stapler were performed. The gastric remnant was then brought out through the 15 mm trocar site. The dilator was withdrawn. And a orogastric tube was replaced into the stomach. The stomach was insufflated with 200 mL of methylene blue normal saline. There was no evidence of extravasation. The abdomen was irrigated there is no bleeding seen. The Alberto-Jaycob device was used to close the 15 mm trocar with 0 Vicryl. Skin was closed with interrupted 3-0 Monocryl sutures once the trochars withdrawn. Dermabond dressing was applied. Patient was sent to recovery in stable condition.
[2020-08-16] MEDS: ONDANSETRON 4 MG/2 ML VIAL IVP PRN ×2 (11:57→17:54)
[2020-08-16] MEDS: HYDROmorphone 0.5 MG/0.5 ML SYRINGE IVP PRN ×2 (12:00→12:04)
[2020-08-16] MEDS: HYDROmorphone 1 MG/ML 1 ML SYRINGE IVP PRN ×3 (13:17→21:01)
--- NOTE | 2020-08-16 13:23 | P.ANPRN ---
Procedure Note - Anesthesia - Nerve Block Performed Bilateral Erector Spinae Single Time Out Performed: Yes Date of Procedure: 08/16/20 Procedure Start Time: :12 Procedure Stop Time: :24 Location of Patient: PreOp Indication: Acute Post-Operative Pain, Requested by Surgeon Sedation Type: Sedate with meaningful contact maintained Preparation: Sterile Prep Position: Prone Needle Types: Pajunk Needle Gauge: 21 Ultrasound used to visualize needle placement: Yes Ultrasound used to observe medication spread: Yes Blood Aspirated: No Pain Paresthesia on Injection Noted: No Resistance on Injection: Normal Image Stored and Saved: Yes Events: Uneventful and Well Tolerated (ropi .5% 15cc plus xylo 1% 10cc bilaterally)
[2020-08-16] MEDS: ALBUTEROL NEBULIZED 2.5 MG/3 ML INHALATION SCH ×3 (16:00→21:07)
[2020-08-16] MEDS: KETOROLAC 15 MG/ML 1 ML VIAL IVP SCH (17:39)
[2020-08-16] MEDS: 0.9% NACL WITH KCL 20 MEQ/L 1,000 ML IV SCH (17:39)
[2020-08-17] MEDS: KETOROLAC 15 MG/ML 1 ML VIAL IVP SCH ×4 (00:32→17:32)
[2020-08-17] MEDS: 0.9% NACL WITH KCL 20 MEQ/L 1,000 ML IV SCH ×4 (00:32→17:31)
[2020-08-17] MEDS: ONDANSETRON 4 MG/2 ML VIAL IVP PRN (01:46)
[2020-08-17] MEDS: LACTATED RINGERS 1,000 ML IV SCH (06:26)
[2020-08-17] MEDS: HYDROmorphone 1 MG/ML 1 ML SYRINGE IVP PRN (08:18)
[2020-08-17 08:35] LABS: Basophils # (A) 0.04 X 10*3/uL (0.00-0.10); Basophils % (A) 0.4 %; Eosinophils # (A) 0.02 X 10*3/uL (0.04-0.35); Eosinophils % (A) 0.2 %; HCT 37.7 % (37.2-46.3); HGB 12.2 g/dL (12.0-15.0); Lymphocytes # (A) 1.96 X 10*3/uL (0.90-5.00); Lymphocytes % (A) 17.5 %; MCH 27.6 pg (27.0-32.0); MCHC 32.4 g/dL (32.0-37.0); MCV 85.3 fL (80.0-97.0); Mean Platelet Volume 10.2 fL (9.5-12.2); Monocytes # (A) 0.96 X 10*3/uL (0.20-1.00); Monocytes % (A) 8.6 %; Neutrophils # (A) 8.11 X 10*3/uL (1.80-7.70); Neutrophils % (A) 72.5 %; Platelet Count 287 X 10*3/uL (140-440); RBC 4.42 X 10*6/uL (4.10-5.20); RDW 13.6 % (11.5-14.5); WBC 11.18 X 10*3/uL (4.50-10.00)
[2020-08-17] MEDS: ALBUTEROL NEBULIZED 2.5 MG/3 ML INHALATION SCH ×4 (08:38→21:34)
[2020-08-17 09:20] LABS: African American GFR (CKD) 123.9 (60.0-200.0); Anion Gap 8.5 mmol/L (4.00-12.00); Calcium 8.7 mg/dL (8.7-10.3); Carbon Dioxide 26.5 mmol/L (21.6-31.8); Magnesium 2.1 mg/dL (1.5-2.4); Non-African American GFR(CKD) 106.9 (60.0-200.0); Phosphorus 2.4 mg/dL (2.4-5.1); Potassium 3.8 mmol/L (3.5-5.5)
[2020-08-17] MEDS: FLUTICASONE 50MCG/SPRAY NASAL 16GM EA NOSTRIL SCH (09:55)
[2020-08-17] MEDS: busPIRone HCl 5 MG TAB PO SCH ×3 (09:55→20:33)
[2020-08-17] MEDS: ENOXAPARIN 40 MG/0.4 ML SYRINGE SQ SCH (09:55)
[2020-08-17] MEDS: hydroCHLOROthiazide 12.5 MG CAP PO SCH (09:58)
[2020-08-17] MEDS: PANTOPRAZOLE 40 MG/10 ML VIAL IV SCH (09:58)
--- NOTE | 2020-08-17 10:03 | FL ---
EXAMINATION TYPE: FL UGI DATE OF EXAM: 08/17/2020 COMPARISON: NONE HISTORY: Postop gastric sleeve TECHNIQUE: A single contrast UGI study is performed. FINDINGS: Limited evaluation at the level of the operative bed. Surgical clips are present. There is no evident leak. Contrast courses across the gastric remnant, th ere is a narrowed appearance at the level of the body of the stomach. Contrast courses into the proxi mal small bowel on delayed images. The duodenal bulb, sweep, and proximal small bowel loops are unremarkable. 2 minutes 11 seconds of fluoroscopy time. 7 intraoperative images document the procedure. IMPRESSION: Postop findings. No evident leak.
--- NOTE | 2020-08-17 11:16 | P.CONS ---
History of Present Illness - Reason for Consult Consult date: 08/17/20 Medical management - History of Present Illness HISTORY OF PRESENT ILLNESS This is a 40-year-old female patient of Dr. Gallego with past medical history of morbid obesity, hypertension, seasonal ALLERGIES, generalized anxiety disorder. Patient is been brought under the hospital under the care of Dr. Trivedi status post gastric sleeve procedure. Patient is seen on postoperative day #1. Plan for today. She has been afebrile, heart rate 96, blood pressure 138/76, pulse ox 93% on room air. patient is complaining of pain and nausea. No vomiting. She has burped no flatulence. No bowel movement. Upper GI series showed no evident leak. REVIEW OF SYSTEMS Constitutional: No fever, no chills, no night sweats. No weight change. No weakness, fatigue or lethargy. No daytime sleepiness. EENT: No headache. No blurred vision or double vision, no loss of vision. No dizziness. No nasal drainage or congestion. No epistaxis. No sore throat. Lungs: No shortness of breath, cough, no sputum production. No wheezing. Cardiovascular: No chest pain, no lower extremity edema. No palpitations. No paroxysmal nocturnal dyspnea. No orthopnea. No lightheadedness or dizziness. No syncopal episodes. Abdominal: mild abdominal pain. No nausea, vomiting. No diarrhea. No constipation. No bloody or tarry stools.. No loss of appetite. Genitourinary: No dysuria, increased frequency, urgency. No urinary retention. Musculoskeletal: No myalgias. No muscle weakness, no gait dysfunction, no frequent falls. No back pain. No neck pain. Integumentary: No wounds, no lesions. No rash or pruritus. No unusual bruising. No change in hair or nails. Neurologic: No aphasia. No facial droop. No change in mentation. No head injury. No headache. No paralysis. No paresthesia. Psychiatric: No depression. No anxiety. No mood swings. Endocrine: No abnormal blood sugars. No weight change. SOCIAL HISTORY Patient is a lifelong nonsmoker, no alcohol use, no illicit drug use, no marijuana use. She livesat home with her and 4 sons. FAMILY HISTORY father is alive with history of hypertension and hyperlipidemia, obesity. Mother is alive with no major medical problems. Patient does not have any sisters. Patient is one brother with hypertension. Patient has 4 sons with no major medical problems.. PHYSICAL EXAMINATION Gen: This is a [id number] female patient. She is resting in bed and appears to be comfortable and in no acute distress. HEENT: Head is atraumatic, normocephalic. Pupils equal, round. Sclerae is anicteric. NECK: Supple. No JVD. No lymphadenopathy. No thyromegaly. LUNGS: Clear to auscultation. No wheezes or rhonchi. No intercostal retractions. HEART: Regular rate and rhythm. No murmur. ABDOMEN: Soft. Bowel sounds are present. No masses. No tenderness. Puncture sites without signs of infection EXTREMITIES: No pedal edema. No calf tenderness. NEUROLOGICAL: Patient is awake, alert and oriented x3. Cranial nerves 2 through 12 are grossly intact. ASSESSMENT AND PLAN 1. Morbid obesity status post gastric sleeve. Continue current pain management, upper GI today. Patient is currently nothing by mouth except for ice chips. 2. Hypertension. Patient will be resumed on hydrochlorothiazide 12.5 mg daily. 3. Seasonal ALLERGIES. Continue Flonase. 4. Generalized anxiety disorder. Continue Buspar. 5. DVT prophylaxis. Continue Lovenox. 6. GI prophylaxis. Continue Protonix. DISCHARGE PLAN Home. Impression and plan of care have been directed as dictated by the signing physician. Mary Alice Crespo nurse practitioner acting as scribe for signing physician. Past Medical History Past Medical History: Hypertension, Osteoarthritis (OA) History of Any Multi-Drug Resistant Organisms: None Reported Past Surgical History: Appendectomy, Section Additional Past Surgical History / Comment(s): CONE BIOPSY, EGD Past Anesthesia/Blood Transfusion Reactions: No Reported Reaction Past Psychological History: Anxiety Smoking Status: Never smoker Past Alcohol Use History: Occasional Past Drug Use History: None Reported - Past Family History Mother Family Medical History: No Reported History Medications and Allergies Home Medications Medication Instructions Recorded Confirmed Type busPIRone HCL [Buspar] 7.5 mg PO TID 12/10/19 08/16/20 History hydroCHLOROthiazide [Hydrodiuril] 12.5 mg PO DAILY 12/10/19 08/16/20 History Fluticasone Nasal [place] [Flonase 2 spr EA NOSTRIL DAILY 02/23/20 08/16/20 History Nasal [place]] bisacodyL [Dulcolax] 5 mg PO DAILY 08/16/20 08/16/20 History Allergies Allergy/AdvReac Type Severity Reaction Status Date / Time No Known Allergies Allergy Verified 08/16/20 09:35 Physical Exam Vitals: Vital Signs Temp Pulse Pulse Pulse Pulse Resp BP 08/17/20 07:05 98 F 96 16 08/17/20 01:45 97.3 F L 98 138/76 08/16/20 21:24 08/16/20 21:18 88 08/16/20 21:08 80 08/16/20 21:00 98 F 91 16 132/79 08/16/20 16:00 107 H 16 137/70 08/16/20 15:30 91 16 135/74 08/16/20 15:00 79 16 127/70 08/16/20 14:28 77 16 127/70 08/16/20 13:58 76 16 125/72 08/16/20 13:15 84 16 127/73 08/16/20 13:00 76 16 126/72 08/16/20 12:45 71 16 126/72 08/16/20 12:30 69 16 126/71 08/16/20 12:15 73 16 08/16/20 12:01 82 16 08/16/20 11:46 79 16 08/16/20 11:31 83 16 08/16/20 11:15 97.7 F 100 16 08/16/20 08:39 98.9 F 100 16 BP Pulse Ox 08/17/20 07:05 08/17/20 01:45 93 L 08/16/20 21:24 97 08/16/20 21:18 08/16/20 21:08 08/16/20 21:00 96 08/16/20 16:00 95 08/16/20 15:30 95 08/16/20 15:00 93 L 08/16/20 14:28 93 L 08/16/20 13:58 94 L 08/16/20 13:15 93 L 08/16/20 13:00 95 08/16/20 12:45 96 08/16/20 12:30 96 08/16/20 12:15 129/70 96 08/16/20 12:01 130/71 97 03/22/21 11:46 136/68 95 08/16/20 11:31 133/70 95 08/16/20 11:15 140/66 95 08/16/20 08:39 137/70 98 Intake and Output 08/16/20 08/17/20 08/17/20 22:59 06:59 14:59 Other: Voiding Method Toilet # Voids 1 2 Weight 108.4 kg Results CBC & Chem 7: 08/17/20 06:10 08/17/20 06:10
[2020-08-17 11:19] VITALS: BMI 39.2
--- NOTE | 2020-08-17 13:34 | P.DS ---
Providers Date of admission: 08/16/20 07:48 Expected date of discharge: 08/17/20 Attending physician: Angel Trivedi Consults: 08/16/20 11:09 Consult Physician Routine Consulting Provider: Kirti Tatum Consult Reason/Comments: Medical management Do you want consulting provider notified?: Yes Primary care physician: [facility] Hospital Course: Discharge diagnosis 1. Morbid obesity, BMI 39 status post laparoscopic sleeve gastrectomy 2. Leukocytosis likely secondary to steroids. Patient did receive a dose of dexamethasone. Hospital course This is a 40-year-old female with a known history of morbid obesity. She is status post laparoscopic sleeve gastrectomy. She tolerated surgery well. Her upper GI showed no evidence of leak. She was started on bariatric clear liquid diet. She is tolerating diet. Her pain is controlled. She is up and ambulating. She is afebrile. Patient is stable for discharge. Please refer to chart for any further details. Physician Auto Collision Repair Instructor note has been reviewed by physician. Signing provider agrees with the documented findings, assessment, and plan of care. Patient Condition at Discharge: Stable Plan - Discharge Summary Discharge Rx Participant: Yes New Discharge Prescriptions: New HYDROcodone/APAP [[place] Elixir 7.5-325Mg/15Ml] 30 ml PO Q6HR PRN #360 ml PRN Reason: Pain bisacodyL [Dulcolax] 5 mg PO DAILY PRN #10 tablet. PRN Reason: Constipation Simethicone 40 mg/0.6 ml Drops [Mylicon Drops] 40 mg PO PCHS PRN #30 ml PRN Reason: Gas Omeprazole [PriLOSEC] 40 mg PO DAILY #30 capsule. Ondansetron Odt [Zofran Odt] 4 mg PO Q8HR PRN #9 tab PRN Reason: Nausea Continue busPIRone HCL [Buspar] 7.5 mg PO TID hydroCHLOROthiazide [Hydrodiuril] 12.5 mg PO DAILY Fluticasone Nasal [place] [Flonase Nasal [place]] 2 spr EA NOSTRIL DAILY bisacodyL [Dulcolax] 5 mg PO DAILY Discharge Medication List busPIRone HCL [Buspar] 7.5 mg PO TID 12/10/19 [History] hydroCHLOROthiazide [Hydrodiuril] 12.5 mg PO DAILY 12/10/19 [History] Fluticasone Nasal [place] [Flonase Nasal [place]] 2 spr EA NOSTRIL DAILY 02/23/20 [History] bisacodyL [Dulcolax] 5 mg PO DAILY 08/16/20 [History] HYDROcodone/APAP [[place] Elixir 7.5-325Mg/15Ml] 30 ml PO Q6HR PRN #360 ml 08/17/20 [Rx] Omeprazole [PriLOSEC] 40 mg PO DAILY #30 capsule. 08/17/20 [Rx] Ondansetron Odt [Zofran Odt] 4 mg PO Q8HR PRN #9 tab 08/17/20 [Rx] Simethicone 40 mg/0.6 ml Drops [Mylicon Drops] 40 mg PO PCHS PRN #30 ml 08/17/20 [Rx] bisacodyL [Dulcolax] 5 mg PO DAILY PRN #10 tablet. 08/17/20 [Rx] Follow up [facility]ment(s[facility] [place] [facility] [place] [facility] Patient Instructions/Handouts: Nutrition after Bariatric Surgery (DC), Nutrition after Bariatric Surgery (GEN), Laparoscopic Sleeve Gastrectomy (DC) Activity/Diet/Wound Care/Special Instructions: No driving while taking [place] No lifting over 10 pounds You may shower. No soaking or tub baths for 2 weeks Very light activity until you are reevaluated at your follow up appointment with your surgeon Discharge Disposition: HOME SELF-CARE
[2020-08-17] MEDS: HYDROcodone/APAP 15 ML SOLUTION PO PRN ×2 (16:15→22:22)
[2020-08-18] MEDS: KETOROLAC 15 MG/ML 1 ML VIAL IVP SCH ×3 (00:25→13:05)
[2020-08-18] MEDS: LACTATED RINGERS 1,000 ML IV SCH (05:32)
[2020-08-18] MEDS: 0.9% NACL WITH KCL 20 MEQ/L 1,000 ML IV SCH (05:33)
[2020-08-18] MEDS: ALBUTEROL NEBULIZED 2.5 MG/3 ML INHALATION SCH ×3 (07:53→15:10)
[2020-08-18] MEDS ORDERED: bisacodyL 5 MG TABLET.DR PO PRN (08:00)
[2020-08-18] MEDS: HYDROcodone/APAP 15 ML SOLUTION PO PRN (08:24)
[2020-08-18 09:08] VITALS: RESP 16
[2020-08-18] MEDS: ENOXAPARIN 40 MG/0.4 ML SYRINGE SQ SCH (09:44)
[2020-08-18] MEDS: FLUTICASONE 50MCG/SPRAY NASAL 16GM EA NOSTRIL SCH (09:44)
[2020-08-18] MEDS: hydroCHLOROthiazide 12.5 MG CAP PO SCH (09:45)
[2020-08-18] MEDS: busPIRone HCl 5 MG TAB PO SCH (09:45)
[2020-08-18] MEDS: PANTOPRAZOLE 40 MG/10 ML VIAL IV SCH (09:46)
[2020-08-18] MEDS ORDERED: HYDROcodone/APAP 5-325MG 1 EACH TAB PO PRN (10:21)
--- NOTE | 2020-08-18 11:29 | P.PN ---
Subjective Progress Note Date: 08/18/20 HISTORY OF PRESENT ILLNESS This is a 40-year-old female patient of Dr. Gallego with past medical history of morbid obesity, hypertension, seasonal ALLERGIES, generalized anxiety disorder. Patient is been brought under the hospital under the care of Dr. Trivedi status post gastric sleeve procedure. Patient is seen on postoperative day #1. Plan for today. She has been afebrile, heart rate 96, blood pressure 138/76, pulse ox 93% on room air. patient is complaining of pain and nausea. No vomiting. She has burped no flatulence. No bowel movement. Upper GI series showed no evident leak. 08/18: Patient is seen today in follow-up. She states she is tolerating her clear liquid bariatric diet. She is reaching greater than 1500 on incentive spirometry. No repeat labs today. Patient is afebrile, heart rate 93, blood pressure 138/89, sex is 100%. Patient is scheduled for discharge home today. REVIEW OF SYSTEMS Constitutional: No fever, no chills, no night sweats. No weight change. No weakness, fatigue or lethargy. No daytime sleepiness. EENT: No headache. No blurred vision or double vision, no loss of vision. No dizziness. No nasal drainage or congestion. No epistaxis. No sore throat. Lungs: No shortness of breath, cough, no sputum production. No wheezing. Cardiovascular: No chest pain, no lower extremity edema. No palpitations. No paroxysmal nocturnal dyspnea. No orthopnea. No lightheadedness or dizziness. No syncopal episodes. Abdominal: mild abdominal discomfort. No nausea, vomiting. No diarrhea. No constipation. No bloody or tarry stools.. No loss of appetite. Genitourinary: No dysuria, increased frequency, urgency. No urinary retention. Musculoskeletal: No myalgias. No muscle weakness, no gait dysfunction, no frequent falls. No back pain. No neck pain. Integumentary: No wounds, no lesions. No rash or pruritus. No unusual bruising. No change in hair or nails. Neurologic: No aphasia. No facial droop. No change in mentation. No head injury. No headache. No paralysis. No paresthesia. Psychiatric: No depression. No anxiety. No mood swings. Endocrine: No abnormal blood sugars. No weight change. PHYSICAL EXAMINATION Gen: This is a 40-year-old female patient. She is resting in recliner and appears to be comfortable and in no acute distress. HEENT: Head is atraumatic, normocephalic. Pupils equal, round. Sclerae is anicteric. NECK: Supple. No JVD. No lymphadenopathy. No thyromegaly. LUNGS: Clear to auscultation. No wheezes or rhonchi. No intercostal retractions. HEART: Regular rate and rhythm. No murmur. ABDOMEN: Soft. Bowel sounds are present. No masses. No tenderness. Puncture sites without signs of infection EXTREMITIES: No pedal edema. No calf tenderness. NEUROLOGICAL: Patient is awake, alert and oriented x3. Cranial nerves 2 through 12 are grossly intact. ASSESSMENT AND PLAN 1. Morbid obesity status post gastric sleeve. Continue current pain management. Patient is tolerating clear liquid bariatric diet. 2. Hypertension. Patient will be resumed on hydrochlorothiazide 12.5 mg daily. 3. Seasonal ALLERGIES. Continue Flonase. 4. Generalized anxiety disorder. Continue Buspar. 5. DVT prophylaxis. Continue Lovenox. 6. GI prophylaxis. Continue Protonix. DISCHARGE PLAN Home. Impression and plan of care have been directed as dictated by the signing physician. Mary Alice Crespo nurse practitioner acting as scribe for signing physician. Objective - Vital Signs Vital signs: Vital Signs Temp 98.5 F 08/18/20 09:05 Pulse 99 08/18/20 09:05 Resp 16 08/18/20 09:05 BP 138/89 08/18/20 09:05 Pulse Ox 100 08/18/20 07:53 Intake & Output 08/17/20 08/18/20 08/18/20 18:59 06:59 18:59 Weight 108.4 kg Other: # Voids 3 - Labs CBC & Chem 7: 08/17/20 06:10 08/17/20 06:10
[2020-08-18 12:17] LABS: Basophils % (A) 0 %; Eosinophils # (A) 0.1 k/uL (0-0.7); Eosinophils % (A) 2 %; HGB 11.5 gm/dL (11.4-16.0); Lymphocytes # (A) 1.6 k/uL (1.0-4.8); Lymphocytes % (A) 23 %; MCH 27.9 pg (25.0-35.0); MCHC 33.8 g/dL (31.0-37.0); MCV 82.6 fL (80.0-100.0); Monocytes # (A) 0.5 k/uL (0-1.0); Monocytes % (A) 6 %; Neutrophils # (A) 4.9 k/uL (1.3-7.7); Neutrophils % (A) 68 %; Platelet Count 222 k/uL (150-450); RBC 4.12 m/uL (3.80-5.40); RDW 13.9 % (11.5-15.5); WBC 7.2 k/uL (3.8-10.6)
[2020-08-18 15:02] VITALS: BP 132/87; PULSE 75; TEMP 98.2
== END 2020-08-18 15:18 | disposition home or self-care (01) | DRG 621 ==
LOC: 2ORMAIN 07:48 → 4SSUR 11:08
PROVIDERS: ADMIT Surgery; ATTEND Surgery
PROC: 0DB64Z3 Excision of Stomach, Percutaneous Endoscopic Approach, Vertical (ICD-10-PCS; principal; 2020-08-16 09:40)
DX: E66.01 Morbid (severe) obesity due to excess calories (principal); Z68.39 Body mass index [BMI] 39.0-39.9, adult; I10 Essential (primary) hypertension; M19.90 Unspecified osteoarthritis, unspecified site; F41.1 Generalized anxiety disorder; J30.2 Other seasonal allergic rhinitis; E78.5 Hyperlipidemia, unspecified; D72.829 Elevated white blood cell count, unspecified; T38.0X5A Adverse effect of glucocorticoids and synthetic analogues, initial encounter; Z79.899 Other long term (current) drug therapy; Z90.49 Acquired absence of other specified parts of digestive tract; Z82.49 Family history of ischemic heart disease and other diseases of the circulatory system
CPT/HCPCS: 64461; 74240; 76942; 80051; 81025; 82310; 82565; 83735; 84100; 84520; 85025; 88307; 94640; 94760

== ENCOUNTER → 2020-08-20 | Outpatient (CLI) | payer OTHER ==
[2020-08-20 11:17] VITALS: BP 121/72; PULSE 82; TEMP 98.2; BMI 40.4
== END ==
LOC: BARWHC3 09:57
PROVIDERS: ATTEND Surgery
DX: E66.01 Morbid (severe) obesity due to excess calories (principal); Z98.84 Bariatric surgery status; Z68.41 Body mass index [BMI] 40.0-44.9, adult
CPT/HCPCS: 99211

== ENCOUNTER → 2020-08-23 | Outpatient (CLI) | payer OTHER ==
[2020-08-23 13:44] VITALS: BP 122/85; PULSE 85; RESP 18; TEMP 98.4; BMI 38.9
--- NOTE | 2020-08-23 16:13 | P.HPBAR ---
Bariatric H&P - History & Physicial H&P Date: 08/23/20 History & Physicial: Visit/CC: follow up Patient initial contact: Initial weight: 119.833 kg Initial weight in pounds: 264.19 Height: 5 ft 5.25 in Initial BMI: 43.6 Last weight: Current weight: 106.866 kg Current weight in pounds: 235.60 Current BMI: 38.9 [place] body weight (based on NIH guidelines): 57.266 kg Excess body weight loss: 20.7% The patient is a 40 year-old F who presents for Bariatric Assessment.patient resents today for postoperative follow-up. She is doing quite well. She's had some minimal Past Medical History Past Medical History: Hypertension, Osteoarthritis (OA) History of Any Multi-Drug Resistant Organisms: None Reported Past Surgical History: Appendectomy, Section Additional Past Surgical History / Comment(s): CONE BIOPSY, EGD Past Anesthesia/Blood Transfusion Reactions: No Reported Reaction Past Psychological History: Anxiety Smoking Status: Never smoker Past Alcohol Use History: Occasional Past Drug Use History: None Reported - Past Family History Mother Family Medical History: No Reported History Surgical - Exam Vital Signs Temp Pulse Resp BP 98.4 F 85 18 122/85 08/23/20 13:35 08/23/20 13:35 08/23/20 13:35 08/23/20 13:35 - General well developed, well nourished, no distress - Eyes PERRL - ENT normal pinna - Neck no masses - Respiratory normal expansion - Cardiovascular Rhythm: regular - Abdomen Abdomen: soft, non tender Bariatric Assessment & Plan Plan: sstatus post sleeve yesterday. Patient is doing quite well. She'll follow-up in one week. Bariatric Checklist Checklist: Plan: Checklist: EGD: 1. Hiatal hernia: 2. H. Pylori: HgbA1c: Vitamin D: Smoking: Unknown if ever smoked Primary care physician referral: Dr. Beltrán Psychiatry clearance: Cardiology clearance: Sleep study: Diet journal: VTE risk score: VTE risk level: Rehab needs at discharge:
== END ==
LOC: BARWHC3 13:31
PROVIDERS: ATTEND Surgery
DX: E66.01 Morbid (severe) obesity due to excess calories (principal); I10 Essential (primary) hypertension; M19.90 Unspecified osteoarthritis, unspecified site; F41.9 Anxiety disorder, unspecified; Z98.84 Bariatric surgery status; Z68.38 Body mass index [BMI] 38.0-38.9, adult; Z79.899 Other long term (current) drug therapy
CPT/HCPCS: 97803; 99211

== ENCOUNTER → 2020-08-30 | Outpatient (CLI) | payer OTHER ==
[2020-08-30 13:16] VITALS: BP 118/80; PULSE 91; RESP 16; TEMP 98.3; BMI 38.2
== END ==
LOC: BARWHC3 12:54
PROVIDERS: ATTEND Surgery
DX: E66.01 Morbid (severe) obesity due to excess calories (principal); Z68.38 Body mass index [BMI] 38.0-38.9, adult; Z71.3 Dietary counseling and surveillance
CPT/HCPCS: 97803; 99211

== ENCOUNTER → 2020-09-20 | Outpatient (CLI) | payer OTHER ==
[2020-09-20 13:37] VITALS: BP 115/78; PULSE 84; RESP 16; TEMP 98.5; BMI 36.6
--- NOTE | 2020-09-20 17:41 | P.HPBAR ---
Bariatric H&P - History & Physicial H&P Date: 09/20/20 History & Physicial: Visit/CC: f/u Patient initial contact: Initial weight: 119.833 kg Initial weight in pounds: 264.19 Height: 5 ft 5.25 in Initial BMI: 43.6 Last weight: Current weight: 100.698 kg Current weight in pounds: 222.00 Current BMI: 36.6 [place] body weight (based on NIH guidelines): 57.266 kg Excess body weight loss: 30.5% The patient is a 40 year-old F who presents for Bariatric Assessment. Patient presents today for sleeve gastrectomy follow-up. She is doing quite well. She lost another 10 pounds her last visit. She's had some mild GERD. Past Medical History Past Medical History: Hypertension, Osteoarthritis (OA) History of Any Multi-Drug Resistant Organisms: None Reported Past Surgical History: Appendectomy, Section Additional Past Surgical History / Comment(s): CONE BIOPSY, EGD Past Anesthesia/Blood Transfusion Reactions: No Reported Reaction Past Psychological History: Anxiety Smoking Status: Never smoker Past Alcohol Use History: Occasional Past Drug Use History: None Reported - Past Family History Mother Family Medical History: No Reported History Surgical - Exam Vital Signs Temp Pulse Resp BP 98.5 F 84 16 115/78 09/20/20 13:35 09/20/20 13:35 09/20/20 13:35 09/20/20 13:35 - General well developed, well nourished, no distress - Eyes PERRL - ENT normal pinna - Neck no masses - Respiratory normal expansion - Cardiovascular Rhythm: regular - Abdomen Abdomen: soft, non tender Bariatric Assessment & Plan Plan: Status post sleeve gastrectomy. Patient's doing quite well. Her GERD is minimal old be observed. Bariatric Checklist Checklist: Plan: Checklist: EGD: 1. Hiatal hernia: 2. H. Pylori: HgbA1c: Vitamin D: Smoking: Unknown if ever smoked Primary care physician referral: Dr. Beltrán Psychiatry clearance: Cardiology clearance: Sleep study: Diet journal: VTE risk score: VTE risk level: Rehab needs at discharge:
== END | disposition home or self-care (01) ==
LOC: BARWHC3 13:04
PROVIDERS: ATTEND Surgery
DX: Z48.815 Encounter for surgical aftercare following surgery on the digestive system (principal); Z98.84 Bariatric surgery status; E66.01 Morbid (severe) obesity due to excess calories; Z71.3 Dietary counseling and surveillance; Z90.49 Acquired absence of other specified parts of digestive tract
CPT/HCPCS: 97803; 99211

== ENCOUNTER → 2020-10-18 | Outpatient (CLI) | payer OTHER ==
[2020-10-18 14:23] VITALS: BP 104/70; PULSE 81; RESP 16; TEMP 98.4; BMI 34.8
--- NOTE | 2020-10-18 15:55 | P.HPBAR ---
Bariatric H&P - History & Physicial H&P Date: 10/18/20 History & Physicial: Visit/CC: Patient initial contact: Initial weight: 119.833 kg Initial weight in pounds: 264.19 Height: 5 ft 5.25 in Initial BMI: 43.6 Last weight: Current weight: 95.708 kg Current weight in pounds: 211.00 Current BMI: 34.8 [place] body weight (based on NIH guidelines): 57.266 kg Excess body weight loss: 38.5% The patient is a 40 year-old F who presents for Bariatric Assessment. Patient presents today for postoperative sleeve gastrectomy follow-up. She has some mild points of GERD. Past Medical History Past Medical History: Hypertension, Osteoarthritis (OA) History of Any Multi-Drug Resistant Organisms: None Reported Past Surgical History: Appendectomy, Section Additional Past Surgical History / Comment(s): CONE BIOPSY, EGD Past Anesthesia/Blood Transfusion Reactions: No Reported Reaction Past Psychological History: Anxiety Smoking Status: Never smoker Past Alcohol Use History: Occasional Past Drug Use History: None Reported - Past Family History Mother Family Medical History: No Reported History Surgical - Exam Vital Signs Temp Pulse Resp BP 98.4 F 81 16 104/70 10/18/20 14:15 10/18/20 14:15 10/18/20 14:15 10/18/20 14:15 - General well developed, well nourished, no distress - Eyes PERRL - ENT normal pinna - Neck no masses - Respiratory normal expansion - Cardiovascular Rhythm: regular Abnormal Heart Sounds: no diastolic murmur - Abdomen Abdomen: soft, non tender Bariatric Assessment & Plan Plan: Status post sleeve gastrectomy. Patient's GERD is minimal will be observed. She'll follow-up in one month. Bariatric Checklist Checklist: Plan: Checklist: EGD: 1. Hiatal hernia: 2. H. Pylori: HgbA1c: Vitamin D: Smoking: Unknown if ever smoked Primary care physician referral: Dr. Beltrán Psychiatry clearance: Cardiology clearance: Sleep study: Diet journal: VTE risk score: VTE risk level: Rehab needs at discharge:
== END ==
LOC: BARWHC3 13:43
PROVIDERS: ATTEND Surgery
DX: Z09 Encounter for follow-up examination after completed treatment for conditions other than malignant neoplasm (principal); K21.9 Gastro-esophageal reflux disease without esophagitis; F41.9 Anxiety disorder, unspecified; I10 Essential (primary) hypertension; M19.90 Unspecified osteoarthritis, unspecified site; Z98.84 Bariatric surgery status
CPT/HCPCS: 99211

== ENCOUNTER → 2020-12-13 | Outpatient (CLI) | payer OTHER ==
[2020-12-13 14:08] VITALS: BP 102/69; PULSE 75; RESP 16; TEMP 98.5; BMI 31.8
--- NOTE | 2020-12-13 16:06 | P.HPBAR ---
Bariatric H&P - History & Physicial H&P Date: 12/13/20 History & Physicial: Visit/CC: F/U Patient initial contact: Initial weight: 119.833 kg Initial weight in pounds: 264.19 Height: 5 ft 5.25 in Initial BMI: 43.6 Last weight: Current weight: 87.543 kg Current weight in pounds: 193.00 Current BMI: 31.8 [place] body weight (based on NIH guidelines): 57.266 kg Excess body weight loss: 51.6% The patient is a 40 year-old F who presents for Bariatric Assessment. Patient has complaints of some mild GERD. Past Medical History Past Medical History: Hypertension, Osteoarthritis (OA) History of Any Multi-Drug Resistant Organisms: None Reported Past Surgical History: Appendectomy, Section Additional Past Surgical History / Comment(s): CONE BIOPSY, EGD Past Anesthesia/Blood Transfusion Reactions: No Reported Reaction Past Psychological History: Anxiety Smoking Status: Never smoker Past Alcohol Use History: Occasional Past Drug Use History: None Reported - Past Family History Mother Family Medical History: No Reported History Surgical - Exam Vital Signs Temp Pulse Resp BP 98.5 F 75 16 102/69 12/13/20 14:05 12/13/20 14:05 12/13/20 14:05 12/13/20 14:05 - General well developed, well nourished, no distress - Eyes PERRL - ENT normal pinna - Neck no masses - Respiratory normal expansion - Cardiovascular Rhythm: regular - Abdomen Abdomen: soft, non tender Bariatric Assessment & Plan Plan: Patient status post sleeve gastric. Her GERD is minimal and will be observed. She'll follow-up in 4 weeks. Bariatric Checklist Checklist: Plan: Checklist: EGD: 1. Hiatal hernia: 2. H. Pylori: HgbA1c: Vitamin D: Smoking: Unknown if ever smoked Primary care physician referral: Dr. Beltrán Psychiatry clearance: Cardiology clearance: Sleep study: Diet journal: VTE risk score: VTE risk level: Rehab needs at discharge:
== END ==
LOC: BARWHC3 13:32
PROVIDERS: ATTEND Surgery
DX: Z09 Encounter for follow-up examination after completed treatment for conditions other than malignant neoplasm (principal); K21.9 Gastro-esophageal reflux disease without esophagitis; I10 Essential (primary) hypertension; M19.90 Unspecified osteoarthritis, unspecified site; F41.9 Anxiety disorder, unspecified; Z98.84 Bariatric surgery status
CPT/HCPCS: 99211

== ENCOUNTER → 2021-01-10 | Outpatient (CLI) | payer OTHER ==
[2021-01-10 14:16] VITALS: BP 113/74; PULSE 77; RESP 18; TEMP 98.3; BMI 30.9
--- NOTE | 2021-01-10 14:44 | P.HPBAR ---
Bariatric H&P - History & Physicial H&P Date: 01/10/21 History & Physicial: Visit/CC: follow up Patient initial contact: Initial weight: 119.833 kg Initial weight in pounds: 264.19 Height: 5 ft 5.25 in Initial BMI: 43.6 Last weight: Current weight: 84.822 kg Current weight in pounds: 187.00 Current BMI: 30.9 [place] body weight (based on NIH guidelines): 57.266 kg Excess body weight loss: 55.9% The patient is a 40 year-old F who presents for Bariatric Assessment. Patient presents today for sleeve gastric a fall. She's had some mild GERD symptoms. She's lost 6 pounds since her last visit. Past Medical History Past Medical History: Hypertension, Osteoarthritis (OA) History of Any Multi-Drug Resistant Organisms: None Reported Past Surgical History: Appendectomy, Section Additional Past Surgical History / Comment(s): CONE BIOPSY, EGD Past Anesthesia/Blood Transfusion Reactions: No Reported Reaction Past Psychological History: Anxiety Smoking Status: Never smoker Past Alcohol Use History: Occasional Past Drug Use History: None Reported - Past Family History Mother Family Medical History: No Reported History Surgical - Exam Vital Signs Temp Pulse Resp BP 98.3 F 77 18 113/74 01/10/21 14:09 01/10/21 14:09 01/10/21 14:09 01/10/21 14:09 - General well developed, well nourished, no distress - Eyes PERRL - ENT normal pinna - Neck no masses - Respiratory normal expansion - Cardiovascular Rhythm: regular - Abdomen Abdomen: soft, non tender Bariatric Assessment & Plan Plan: Status post sleeve gastrectomy. Patient's crit is minimal and will be observed. She'll follow-up in one month. Bariatric Checklist Checklist: Plan: Checklist: EGD: 1. Hiatal hernia: 2. H. Pylori: HgbA1c: Vitamin D: Smoking: Unknown if ever smoked Primary care physician referral: Dr. Beltrán Psychiatry clearance: Cardiology clearance: Sleep study: Diet journal: VTE risk score: VTE risk level: Rehab needs at discharge:
== END ==
LOC: BARWHC3 14:02
PROVIDERS: ATTEND Surgery
DX: Z09 Encounter for follow-up examination after completed treatment for conditions other than malignant neoplasm (principal); K21.9 Gastro-esophageal reflux disease without esophagitis; I10 Essential (primary) hypertension; M19.90 Unspecified osteoarthritis, unspecified site; F41.9 Anxiety disorder, unspecified
CPT/HCPCS: 99211

== ENCOUNTER → 2021-02-21 | Outpatient (CLI) | payer OTHER ==
[2021-02-21 14:19] VITALS: BP 118/78; PULSE 72; RESP 18; TEMP 98.2; BMI 29.7
--- NOTE | 2021-02-21 14:43 | P.HPBAR ---
Bariatric H&P - History & Physicial H&P Date: 02/21/21 History & Physicial: Visit/CC: follow up Patient initial contact: Initial weight: 119.833 kg Initial weight in pounds: 264.19 Height: 5 ft 5.25 in Initial BMI: 43.6 Last weight: Current weight: 81.737 kg Current weight in pounds: 180.20 Current BMI: 29.7 [place] body weight (based on NIH guidelines): 57.266 kg Excess body weight loss: 60.8% The patient is a 40 year-old F who presents for Bariatric Assessment. Patient resents today for bariatric follow. She's had excellent weight loss. She's had some mild GERD. Past Medical History Past Medical History: Hypertension, Osteoarthritis (OA) History of Any Multi-Drug Resistant Organisms: None Reported Past Surgical History: Appendectomy, Section Additional Past Surgical History / Comment(s): CONE BIOPSY, EGD Past Anesthesia/Blood Transfusion Reactions: No Reported Reaction Past Psychological History: Anxiety Smoking Status: Never smoker Past Alcohol Use History: Occasional Past Drug Use History: None Reported - Past Family History Mother Family Medical History: No Reported History Surgical - Exam Vital Signs Temp Pulse Resp BP 98.2 F 72 18 118/78 02/21/21 14:12 02/21/21 14:12 02/21/21 14:12 02/21/21 14:12 - General well developed, well nourished, no distress - Eyes PERRL - ENT normal pinna - Neck no masses - Respiratory normal expansion - Cardiovascular Rhythm: regular - Abdomen Abdomen: soft, non tender Bariatric Assessment & Plan Plan: Status post sleeve gastrectomy. Patient's weight loss is excellent. She will follow-up in 4 weeks. Her GERD is minimal will be observed. Bariatric Checklist Checklist: Plan: Checklist: EGD: 1. Hiatal hernia: 2. H. Pylori: HgbA1c: Vitamin D: Smoking: Unknown if ever smoked Primary care physician referral: Dr. Beltrán Psychiatry clearance: Cardiology clearance: Sleep study: Diet journal: VTE risk score: VTE risk level: Rehab needs at discharge:
[2021-02-21 15:02] LABS: HCT 36.4 % (34.0-46.0); HGB 12.7 gm/dL (11.4-16.0); MCH 29.8 pg (25.0-35.0); MCHC 34.8 g/dL (31.0-37.0); MCV 85.7 fL (80.0-100.0); Mean Platelet Volume 8.5; Platelet Count 190 k/uL (150-450); RBC 4.25 m/uL (3.80-5.40); RDW 13.9 % (11.5-15.5); WBC 6.9 k/uL (3.8-10.6)
[2021-02-22 05:50] LABS: % Iron Saturation 13.13 (12.00-45.00); African American GFR (CKD) 105.4 (60.0-200.0); Albumin 4.3 g/dL (3.80-4.90); Albumin/Globulin Ratio 1.87 (1.60-3.17); Anion Gap 9.9 mmol/L (4.00-12.00); BUN/Creat Ratio 11.25 Ratio (12.00-20.00); Calcium 9.3 mg/dL (8.7-10.3); Carbon Dioxide 24.1 mmol/L (21.6-31.8); Globulin 2.3 g/dL (1.6-3.3); Magnesium 2.1 mg/dL (1.5-2.4); Non-African American GFR(CKD) 90.9 (60.0-200.0); Potassium 3.9 mmol/L (3.5-5.5); Total Bilirubin 0.4 mg/dL (0.2-1.2); Total Protein 6.6 g/dL (6.2-8.2)
[2021-02-22 05:59] LABS: Ferritin 120.5 ng/mL (10.0-291.0)
[2021-02-22 06:11] LABS: Folate, Serum 12.7 ng/mL
[2021-02-22 12:12] LABS: Zinc, Serum 72 ug/dL (60-130)
[2021-02-23 08:30] LABS: Vit B1(Thiamine) 85 ug/L (38-122)
== END ==
LOC: BARWHC3 14:01
PROVIDERS: ATTEND Surgery
DX: Z09 Encounter for follow-up examination after completed treatment for conditions other than malignant neoplasm (principal); K21.9 Gastro-esophageal reflux disease without esophagitis; I10 Essential (primary) hypertension; M19.90 Unspecified osteoarthritis, unspecified site; F41.9 Anxiety disorder, unspecified; Z98.84 Bariatric surgery status
CPT/HCPCS: 36415; 80053; 82306; 82607; 82728; 82746; 83540; 83550; 83735; 84255; 84425; 84443; 84590; 84630; 85027; 99211